=== PATIENT | male | born 1960 | race Caucasian/White ===

== ENCOUNTER 2022-09-25 10:25 | Day surgery (SDC) | payer BC ==
[~2022-09-25 10:25] MED LIST: Midazolam 1 MG/ML 2 ML SDV ONE; Propofol 200 MG/20 ML SDV ONE; Sodium Chloride 0.9% 10 ML Syringe FLUSH PRN
[2022-09-25] MEDS: Lactated Ringers 1,000 ML IV SCH (10:49)
== END 2022-09-25 13:10 | disposition home or self-care (01) ==
LOC: LL.SDS 10:25
PROVIDERS: ATTEND Surgery
DX: Z12.11 Encounter for screening for malignant neoplasm of colon (principal); D12.4 Benign neoplasm of descending colon; K57.30 Diverticulosis of large intestine without perforation or abscess without bleeding; R73.03 Prediabetes; E66.9 Obesity, unspecified; G47.33 Obstructive sleep apnea (adult) (pediatric); Z68.42 Body mass index [BMI] 45.0-49.9, adult; Z79.899 Other long term (current) drug therapy; Z86.010 Personal history of colon polyps
CPT/HCPCS: J2250; J2704; J7120

== ENCOUNTER 2024-09-06 01:58 | Emergency (ER) | payer BC ==
[2024-09-06] MEDS ORDERED: Naloxone 0.4 MG/ML SDV IVPUSH PRN (02:13)
[2024-09-06] MEDS: Sodium Chloride 0.9% 10 ML Syringe FLUSH PRN (02:22)
[2024-09-06] MEDS: Ondansetron 4 MG/2 ML SDV IVPUSH ONE (02:22)
[2024-09-06] MEDS: Morphine 2 MG/ML SYRINGE IVPUSH ONE ×2 (02:22→03:52)
[2024-09-06 02:28] LABS: BASOPHILS ABSOLUTE AUTO 0.01 K/uL (0.00-0.20); BASOPHILS PERCENT AUTO 0.1 % (0.0-2.0); EOSINOPHILS ABSOLUTE AUTO 0.01 K/uL (0.00-0.50); EOSINOPHILS PERCENT AUTO 0.1 % (0.0-5.0); HEMATOCRIT 43.5 % (39.0-49.0); HEMOGLOBIN 14.8 g/dL (13.1-16.8); IMMATURE GRAN ABSOLUTE AUTO 0.03 10^3/uL (0.00-0.04); IMMATURE GRAN PERCENT AUTO 0.2 % (0.0-0.4); LYMPHOCYTES ABSOLUTE AUTO 0.42 K/uL (0.50-3.50); LYMPHOCYTES PERCENT AUTO 3.4 % (10.0-50.0); MEAN CORPUSCULAR HEMOGLOBIN 30.1 pg (28.2-33.3); MEAN CORPUSCULAR VOLUME 88.6 fL (84.0-98.0); MONOCYTES ABSOLUTE AUTO 0.48 K/uL (0.00-1.00); MONOCYTES PERCENT AUTO 3.9 % (2.0-14.0); NEUTROPHILS ABSOLUTE AUTO 11.25 K/uL (1.40-7.00); NEUTROPHILS PERCENT AUTO 92.3 % (45.0-80.0); PLATELET COUNT,PLT 242 K/uL (150-350); RED BLOOD CELL COUNT 4.91 M/uL (4.33-5.41); RED CELL DISTRIBUTION WIDTH 12.2 % (11.2-14.1); WHITE BLOOD CELL COUNT,WBC 12.2 K/uL (4.0-10.2)
[2024-09-06 02:47] LABS: APPEARANCE,URINE CLEAR; BILIRUBIN,URINE MODERATE (NEGATIVE); COLOR,URINE AMBER; GLUCOSE,URINE NEGATIVE (NEGATIVE); KETONES,URINE TRACE mg/dL (NEGATIVE); LEUKOCYTE ESTERASE,URINE NEGATIVE (NEGATIVE); NITRITE,URINE NEGATIVE (NEGATIVE); OCCULT BLOOD,URINE NEGATIVE (NEGATIVE); PH,URINE 5.5 (5.0-9.0); PROTEIN,URINE 30 mg/dL (NEGATIVE)
[2024-09-06 02:51] LABS: BACTERIA,URINE FEW /HPF (NONE TO FEW); EPITHELIAL CELLS,URINE FEW /LPF
[2024-09-06 02:52] LABS: HYALINE CASTS,URINE FEW; MUCUS,URINE MODERATE /LPF (NEGATIVE)
[2024-09-06 02:58] LABS: ALBUMIN 3.8 g/dL (3.4-5.0); ALKALINE PHOSPHATASE 243 IU/L (46-116); AMYLASE 28 U/L (25-115); ANION GAP 14.6 meq/L (7-15); BILIRUBIN TOTAL 2.4 mg/dL (0.2-1.0); BLOOD UREA NITROGEN,BUN 11 mg/dL (7-18); CALCIUM 9.3 mg/dL (8.5-10.1); CARBON DIOXIDE,CO2 23.4 mmol/L (21.0-32.0); CHLORIDE,CL 101 mmol/L (98-107); CREATININE 1.12 mg/dL (0.51-1.17); GLUCOSE RANDOM 231 mg/dL (70-99); LIPASE 41 U/L (16-77); POTASSIUM,K 3.7 mmol/L (3.5-5.1); PROTEIN TOTAL,TP 7.9 g/dL (6.4-8.2); SODIUM,NA 139 mmol/L (136-145)
[2024-09-06 02:59] LABS: ALANINE AMINOTRANSFERASE,ALT 1100 U/L (12-78); ASPARTATE AMNIOTRANSFERASE,AST 1047 U/L (15-37); ESTIMATED GFR 73 mL/min (>=60)
[2024-09-06] MEDS: Sodium Chloride 0.9% 1,000 ML IV ONE (03:03)
[2024-09-06] MEDS: Iopamidol 612 MG/ML 100 ML Bottle IVPUSH ONE (03:48)
[2024-09-06] MEDS: cefTRIAXone 2 GM in Sodium Chloride 0.9% 100 ML IV ONE (05:17)
[2024-09-06] MEDS: Sodium Chloride 0.9% 500 ML IV SCH (05:45)
[2024-09-06] MEDS: Morphine 2 MG/ML SYRINGE IVPUSH PRN (08:12)
[2024-09-06] MEDS: Ondansetron 4 MG/2 ML SDV IVPUSH PRN (15:41)
[2024-09-06 15:45] VITALS: BP 124/70; PULSE 59
== END 2024-09-06 15:55 ==
LOC: LL.ED 01:58
DX: K81.9 Cholecystitis, unspecified (principal); K83.8 Other specified diseases of biliary tract; E66.9 Obesity, unspecified; Z88.8 Allergy status to other drugs, medicaments and biological substances; Z79.82 Long term (current) use of aspirin; Z79.899 Other long term (current) drug therapy
CPT/HCPCS: 36415; 74177; 80053; 81001; 82150; 83605; 83690; 85025; 87428-QW; 96361; 96365; 96375; 96376; 99284; 99285-25; J0696; J2270; J2405; J3490; J7030; J7040; Q9967